=== PATIENT | female | born 2000 | race Caucasian/White ===

== ENCOUNTER 2022-10-17 07:28 | Day surgery (SDC) | payer OTHER ==
[2022-10-10 12:39] VITALS: BMI 20.5
--- NOTE | 2022-10-13 21:05 | P.GSHP ---
History of Present Illness H&P Date: 10/12/22 Chief Complaint: Left flank pain The patient is a 22-year-old white female who recently underwent ureteroscopic removal of right ureteral/renal calculi in [place]. She was admitted on 09/24/2022 with complaints of left flank pain and vomiting. CT scan showed moderate left hydronephrosis due to 2 left distal ureteral calculi, measuring 5- 7 mm in size. She also was found to have 2 left renal calculi measuring approximately 1 cm each. No right-sided calculi were seen. She was admitted and treated with IV antibiotics for an E. coli UTI. She underwent left ureteral stent insertion. - Constitutional Constitutional: Reports fever - Genitourinary (Female) Genitourinary: Reports flank pain, Reports kidney stones Past Medical History Additional Past Medical History / Comment(s): History of kidney stones, states when she was a shunt was inserted. History of Any Multi-Drug Resistant Organisms: None Reported Additional Past Surgical History / Comment(s): Cystoscopy with stent. Additional Past Anesthesia/Blood Transfusion Reaction / Comment(s): Has never had anesthesia. Smoking Status: Former smoker - Past Family History Mother Family Medical History: No Reported History Medications and Allergies Home Medications Medication Instructions Recorded Confirmed Type Medroxyprogesterone Acetate 1 dose SQ Q90D 10/10/22 10/10/22 History [Depo-Subq Provera 104] Allergies Allergy/AdvReac Type Severity Reaction Status Date / Time amoxicillin [From Augmentin] Allergy Anaphylaxis Verified 10/10/22 12:25 bee venom protein (honey bee) Allergy Unknown Verified 10/10/22 13:06 clavulanic acid Allergy Anaphylaxis Verified 10/10/22 12:25 [From Augmentin] coconut Allergy Unknown Verified 10/10/22 13:06 seafood Allergy Unknown Uncoded 10/10/22 13:06 Surgical - Exam - General well developed, well nourished, no distress - Neck no masses, trachea midline - Respiratory normal respiratory effort - Abdomen Abdomen: soft, non tender, no guarding, no rigid, no rebound - Genitourinary normal external genitalia - Psychiatric oriented to time, oriented to person, oriented to place, speech is normal, memory intact Results - Imaging CT scan - abdomen: report reviewed, image reviewed Assessment and Plan (1) Calculus of kidney Status: Acute Code(s): N20.0 - CALCULUS OF KIDNEY SNOMED Code(s): 51758352 (2) Calculus of ureter Status: Acute Code(s): N20.1 - CALCULUS OF URETER SNOMED Code(s): 18527765 Plan: Cystoscopy, left ureteroscopy with Holmium laser lithotripsy and possible stone basketing, left ureteral stent change. The procedure has been reviewed in detail with the patient. She is aware of potential risks, which include anesthesia, bleeding, infection, inability to successfully remove the calculi, and ureteral injury. She is aware of the possible need for a secondary procedure given the stone burden..
[2022-10-17] MEDS ORDERED: LACTATED RINGERS 1,000 ML IV ONE ×2 (07:46→09:57)
[2022-10-17] MEDS ORDERED: HYDROmorphone 0.5 MG/0.5 ML SYRINGE IVP PRN (07:48)
[2022-10-17] MEDS ORDERED: LACTATED RINGERS 1,000 ML IV SCH (07:48)
[2022-10-17] MEDS ORDERED: droPERidol 5 MG/2 ML VIAL IVP ONE (07:48)
[2022-10-17] MEDS ORDERED: LIDOCAINE 1% (10MG/ML) FOR IV START INTRADERMA PRN (07:48)
[2022-10-17] MEDS ORDERED: DEXAMETHASONE SOD PHOSPHATE 4 MG/ML 1 ML VIAL IV ONE (08:00)
[2022-10-17] MEDS ORDERED: ONDANSETRON 4 MG/2 ML VIAL IVP ONE ×3 (08:00→11:34)
[2022-10-17] MEDS ORDERED: SCOPOLAMINE 1 MG/72 HR PATCH TRANSDERM ONE (08:15)
--- NOTE | 2022-10-17 08:26 | XR ---
EXAMINATION TYPE: XR KUB DATE OF EXAM: 10/17/2022 7:44 AM INDICATION: Patient age:Female; 22 years old; Reason for study: PRE SURGICAL; [facility]. COMPARISON: None. TECHNIQUE: One radiographic view of the abdomen was obtained. FINDINGS: Left ureteral stent with multiple renal calculi one within the pelvis measuring up to 11 mm . Ureteral stent appears in appropriate position. Nonobstructive bowel gas pattern. Osseous structure s are intact. IMPRESSION: Appropriate placement of left ureteral stent with multiple left renal calculi.
[2022-10-17] MEDS ORDERED: KETOROLAC 30 MG/ML 1 ML VIAL ONE (09:05)
[2022-10-17] MEDS ORDERED: LIDOCAINE 2% INJ 20 MG/ML (2 ML VIAL) ONE (09:05)
[2022-10-17] MEDS ORDERED: fentaNYL (PF) 50 MCG/ML 2 ML AMP ONE (09:05)
[2022-10-17] MEDS ORDERED: HYDROmorphone (PF) 1 MG/ML ONE (09:05)
[2022-10-17] MEDS ORDERED: PROPOFOL 10 MG/ML 20 ML VIAL IV ONE (09:05)
[2022-10-17] MEDS ORDERED: MIDAZOLAM 2 MG/2 ML VIAL ONE (09:05)
--- NOTE | 2022-10-17 10:42 | FL ---
Intraoperative/procedural fluoroscopic services were provided. Total fluoroscopy time is 14.1 seconds with a total of 1 submitted images to PACS. Please see the operative/procedural note for further det ails. DAP: 1.5550 mGym2
[2022-10-17 10:43] VITALS: TEMP 97.4
[2022-10-17 11:48] VITALS: RESP 18
[2022-10-17 12:09] VITALS: BP 114/77; PULSE 79
--- NOTE | 2022-10-17 16:29 | P.OP ---
Date of Procedure: 10/17/22 Preoperative Diagnosis: Left ureteral and renal calculi Postoperative Diagnosis: Left renal calculi Procedure(s) Performed: Cystoscopy, left ureteral stent removal, left ureteroscopy with Holmium laser lithotripsy and stone basketing Anesthesia: MARCO Surgeon: Aguila Escobedo Estimated Blood Loss (ml): 10 IV fluids (ml): 1,000 Pathology: other (Left renal calculus fragment, sent for chemical analysis) Condition: stable Disposition: PACU Indications for Procedure: The patient is a 22-year-old white female who recently underwent ureteroscopic removal of right ureteral/renal calculi in [place]. She was admitted on 09/24/2022 with complaints of left flank pain and vomiting. CT scan showed moderate left hydronephrosis due to 2 left distal ureteral calculi, measuring 5- 7 mm in size. She also was found to have 2 left renal calculi measuring approximately 1 cm each. No right-sided calculi were seen. She was admitted and treated with IV antibiotics for an E. coli UTI. She underwent left ureteral stent insertion. Operative Findings: 4 left renal calculi, fragmented completely. Description of Procedure: The patient was taken to the operating room and placed in the dorsolithotomy position, with legs supported in Santiago stirrups. The external genitalia was prepped and draped sterilely. The 30 lens was used to introduce the 21-Zimbabwean Louis cystoscopic sheath through the urethra and into the bladder under direct vision. The bladder was examined in its entirety. No tumors or foreign bodies were seen. Grasping forceps were used to grasp the distal end of the left ureteral stent, which was removed along with the cystoscope. The Louis angelcamra mini flexible ureteroscope was advanced in the bladder, and the left ureteral orifice was cannulated. The ureteroscope was slowly advanced under direct vision, up to the left renal pelvis. No calculi were seen within the ureter. For calculi were identified within the left kidney, one within the renal pelvis, and 3 within mid pole calyces. The calculi measured 8-11 mm in diameter. The 272 holmium laser probe was passed through the ureteroscope, and lithotripsy was performed using a dusting mode. Each of the calculi were dusted, though some fragments broke away. A 0.038 inch Glidewire was passed through the ureteroscope, which was removed. An 11/13-Zimbabwean ureteral access catheter was passed over the wire, up to the proximal ureter. The flexible ureteroscope was then passed through the ureteral access catheter sheath and up to the renal pelvis. A 0 tip basket was used to remove a calculus fragment, but this measured only 1-2 mm in size. Visualization was poor with the stone basket in place, and therefore the decision was made to fragment the residual calculus fragments further using a popcorning mode. The 272 holmium laser probe was utilized for this, and upon completion of this there were no residual calculus fragments seen exceeding the size of the laser fiber tip. Fluoroscopy showed no residual visible calculus fragments. Pullout ureteroscopy showed no evidence of ureteral trauma. The patient tolerated the procedure well and was taken to the recovery room in stable condition. [facility] [place] [facility] Report: Procedure Acuity: Elective Stone Size and Location: 11 mm, left renal pelvis Ureteral Dilation: No Ureteral Access Sheath Used: Yes Stone Sent for Analysis: Yes All Stones/Fragments Were Removed with a Basket: No Complications: No Preoperative Antibiotics Given: Yes Stent Placed: No Discharge Medications: Keflex
== END 2022-10-17 12:23 | disposition home or self-care (01) ==
LOC: OR 07:28
PROVIDERS: ATTEND Urology
DX: N13.2 Hydronephrosis with renal and ureteral calculous obstruction (principal); Z86.19 Personal history of other infectious and parasitic diseases; Z87.891 Personal history of nicotine dependence; Z79.899 Other long term (current) drug therapy; Z88.1 Allergy status to other antibiotic agents; Z91.030 Bee allergy status; Z88.8 Allergy status to other drugs, medicaments and biological substances; Z91.013 Allergy to seafood; Z91.018 Allergy to other foods; Z98.890 Other specified postprocedural states
CPT/HCPCS: 81025; 82365; 74018; 52353; C1769; J2250; J1100; J0690; J2405; J3010; J1885; J1170; J2704; J2001